=== PATIENT | male | born 1980 | race Caucasian/White ===

== ENCOUNTER → 2022-01-02 10:07 | Outpatient (CLI) | payer BC, SELFPAY ==
--- NOTE | ~2022-01-02 | CT_ITS ---
EXAMINATION: CT soft tissue neck w con DATE: 01/02/2022 10:30 INDICATION: Tonsillar hypertrophy. Sleep apnea. TECHNIQUE: Computed tomography (CT) of the neck was performed with 75 mL Omnipaque-350 intravenous co ntrast. Automated exposure control and iterative reconstruction technique were employed. The dose-carter gth product was 443.07 mGy-cm. COMPARISON: None FINDINGS: The orbits are normal. There are no pathologically enlarged lymph nodes. The adenoids are n ormal. The palatine tonsils are prominent. No abscess. The bones are unremarkable. There is mild muco kristal thickening in the paranasal sinuses. IMPRESSION: 1. Prominent palatine tonsils. No abscess. Reviewed, dictated and finalized at location A.
== END ==
PROVIDERS: PCP Otolaryngology; Visit Provider Otolaryngology
DX: J35.1 Hypertrophy of tonsils (principal); J35.8 Other chronic diseases of tonsils and adenoids
CPT/HCPCS: 70491; Q9967

== ENCOUNTER 2023-12-24 08:04 | Outpatient (CLI) | payer BC, SELFPAY ==
[2023-12-24 09:41] LABS: HIV 1/2 Ab P24 Ag Result Negative (Negative)
[2023-12-24 11:02] LABS: Hepatitis C Virus Antibody Negative (Negative)
== END 2023-12-24 08:05 | disposition home or self-care (01) ==
PROVIDERS: PCP Family Medicine; Visit Provider Student in an Organized Health Care Education/Training Program
DX: Z77.21 Contact with and (suspected) exposure to potentially hazardous body fluids (principal)
CPT/HCPCS: 36415; 86703; 86803; G0432

== ENCOUNTER 2024-09-22 07:10 | Outpatient (CLI) | payer BC, SELFPAY ==
--- NOTE | ~2024-09-22 | XR_ITS ---
CHEST RADIOGRAPH, PA AND LATERAL CLINICAL HISTORY: R05.9 - Cough, unspecified . COMPARISON: None TECHNIQUE: PA and lateral views of the chest. FINDINGS The cardiomediastinal silhouette is unremarkable. The lungs are clear. Visualized osseous structures and soft tissues are unremarkable. IMPRESSION: No focal infiltrate or effusion. Reviewed, dictated and finalized at location A.
== END 2024-09-22 07:11 | disposition home or self-care (01) ==
PROVIDERS: PCP Family Medicine; Visit Provider Family Medicine
DX: R05.9 Cough, unspecified (principal)
CPT/HCPCS: 71046